=== PATIENT | male | born 1930 | race African-American/Black ===

== ENCOUNTER 2016-07-14 14:35 | Emergency (ER) | payer OTHER ==
[~2016-07-14] VITALS: Ht 167.6 cm; Wt 169.0 kg
[~2016-07-14 14:35] MED LIST: ATOR10TA PO; FURO-152 PO; INSU3INS6 SUBCUT; IOHEXOL-350 100 ML BOTTLE ONE; SODIUM CHLORIDE 0.9% 10ML VIAL ONE
[2016-07-14 15:57] LABS: BASOPHILS % 0.6 % (0.0-2.0); EOSINOPHILS % 2.4 % (0.0-5.0); HEMATOCRIT. 31.2 % (42.0-52.0); HEMOGLOBIN. 10.5 g/dL (14.0-18.0); LYMPHOCYTES % 32.9 % (20.0-50.0); MEAN CORPUSCULAR HEMOGLOBIN 29.2 pg (28.0-32.0); MEAN CORPUSCULAR HGB CONC 33.6 g/dL (31.0-37.0); MEAN PLATELET VOLUME 8.3 fl (7.4-10.4); MONOCYTES % 4.3 % (2.0-8.0); NEUTROPHILS % 59.8 % (40.0-76.0); PLATELET 236 x1000/uL (130-400); RED BLOOD CELL COUNT 3.59 mill/uL (4.7-6.1); RED CELL DISTRIBUTION WIDTH 17.7 % (11.6-14.6); WHITE BLOOD COUNT 6.4 x1000/uL (4.5-11.0)
[2016-07-14 16:02] LABS: INR 1.1; PROTHROMBIN TIME 11.9 sec
[2016-07-14 16:12] LABS: ALANINE AMINOTRANSFERASE 10 IU/L (13-61); ALBUMIN 1.8 g/dL (3.4-5.0); ANION GAP 10; CALCIUM 7.6 mg/dL (8.5-10.1); CARBON DIOXIDE 33 mEq/L (21-32); CHLORIDE 105 mEq/L (98-107); INDEX HEMOLYSI 1 (1-3); INDEX ICTERIC 1 (1-4); INDEX LIPEMIC 1 (1-3); NT PRO B-TYPE NATRIURETIC PEP 6190 pg/mL (5-125); TROPONIN I 0.03 ng/mL (0.00-0.04); UREA NITROGEN BLOOD 5 mg/dL (7-21); eGFR > 60 mL/min (>60)
[2016-07-14 17:00] LABS: CLARITY URINE CLEAR (CLEAR); COLOR URINE YELLOW (YELLOW); GLUCOSE URINE NEGATIVE (NEGATIVE); KETONES URINE NEGATIVE (NEGATIVE); LEUKOCYTE ESTERASE URINE NEGATIVE (NEGATIVE); NITRITE URINE NEGATIVE (NEGATIVE); OCCULT BLOOD URINE NEGATIVE (NEGATIVE); PROTEIN URINE NEGATIVE (NEGATIVE); SPECIFIC GRAVITY URINE 1.007 (1.005-1.030); UROBILINOGEN URINE 0.2 E.U./dL (0.2-1.0)
[2016-07-14] MEDS ORDERED: AZITHROMYCIN 500 MG in DEXT 5% WATER 250 ML IV SCH (19:15)
[2016-07-14] MEDS ORDERED: CEFTRIAXONE 1 G PREMIX 50 ML IV ONE (19:15)
[2016-07-15 01:00] VITALS: BP 147/80
== END 2016-07-15 01:55 | disposition short-term general hospital (02) ==
LOC: ER 14:53
DX: J18.9 Pneumonia, unspecified organism (principal); I26.99 Other pulmonary embolism without acute cor pulmonale; J98.11 Atelectasis; E11.9 Type 2 diabetes mellitus without complications; Z89.522 Acquired absence of left knee; Z89.521 Acquired absence of right knee; F03.90 Unspecified dementia, unspecified severity, without behavioral disturbance, psychotic disturbance, mood disturbance, and anxiety; I51.9 Heart disease, unspecified
CPT/HCPCS: 36415; 71010; 71275; 80053; 81003; 82962; 83880; 84443; 84484; 85025; 85379; 85610; 87040; 96365; 96366; 96367; 99285; A4216; J0456; J0696; Q9967; J7060

== ENCOUNTER 2016-09-24 10:45 | Emergency (ER) | payer OTHER ==
[~2016-09-24] VITALS: Ht 160 cm; Wt 80.0 kg
[~2016-09-24 10:45] MED LIST changes: -IOHEXOL-350 100 ML BOTTLE ONE; -SODIUM CHLORIDE 0.9% 10ML VIAL ONE
[2016-09-24] MEDS ORDERED: DEXTROSE 50% WATER 50ML SYRINGE IV ONE ×2 (11:23→11:30)
[2016-09-24 12:21] LABS: HEMATOCRIT. 27.8 % (42.0-52.0); HEMOGLOBIN. 9.3 g/dL (14.0-18.0); MEAN CORPUSCULAR HEMOGLOBIN 30.3 pg (28.0-32.0); MEAN CORPUSCULAR VOLUME 90.9 fL (80.0-94.0); MEAN PLATELET VOLUME 9.3 fl (7.4-10.4); PLATELET 202 x1000/uL (130-400); RED BLOOD CELL COUNT 3.06 mill/uL (4.7-6.1); RED CELL DISTRIBUTION WIDTH 17.8 % (11.6-14.6)
[2016-09-24 12:30] LABS: INR 1.1; PROTHROMBIN TIME 11.2 sec
[2016-09-24 12:38] LABS: CARBON DIOXIDE 29 mEq/L (21-32); CHLORIDE 110 mEq/L (98-107)
[2016-09-24 12:42] LABS: TROPONIN I 0.02 ng/mL (0.00-0.04)
[2016-09-24 13:58] LABS: PLATELET ESTIMATE NORMAL
[2016-09-24] MEDS ORDERED: POTASSIUM CHLORIDE 20MEQ TABLET SR PO ONE (14:00)
[2016-09-24 14:55] LABS: CLARITY URINE TURBID (CLEAR); COLOR URINE YELLOW (YELLOW); GLUCOSE URINE TRACE (NEGATIVE); KETONES URINE TRACE (NEGATIVE); LEUKOCYTE ESTERASE URINE 3+ (NEGATIVE); NITRITE URINE NEGATIVE (NEGATIVE); OCCULT BLOOD URINE 1+ (NEGATIVE); PROTEIN URINE TRACE (NEGATIVE); SPECIFIC GRAVITY URINE 1.019 (1.005-1.030); UROBILINOGEN URINE 0.2 E.U./dL (0.2-1.0)
[2016-09-24] MEDS ORDERED: CEFTRIAXONE 1 G PREMIX 50 ML IV ONE (15:15)
[2016-09-24 19:12] VITALS: BP 164/89
== END 2016-09-24 19:14 | disposition home or self-care (01) ==
LOC: ER 11:12 → CANBEDREQ 19:34
DX: E11.649 Type 2 diabetes mellitus with hypoglycemia without coma (principal); I10 Essential (primary) hypertension; E11.9 Type 2 diabetes mellitus without complications; N39.0 Urinary tract infection, site not specified; D64.9 Anemia, unspecified
CPT/HCPCS: 36415; 71010; 80053; 81001; 82962; 83690; 84484; 85025; 85610; 87077; 87086; 87186; 93005; 96365; 96366; 96375; 99285; J0696

== ENCOUNTER 2016-10-05 21:59 | Emergency (ER) | payer OTHER ==
[~2016-10-05] VITALS: Ht 177.8 cm; Wt 68.0 kg
[2016-10-05 23:21] LABS: HEMATOCRIT. 28.9 % (42.0-52.0); HEMOGLOBIN. 9.5 g/dL (14.0-18.0); MEAN CORPUSCULAR HEMOGLOBIN 30.2 pg (28.0-32.0); MEAN CORPUSCULAR VOLUME 91.6 fL (80.0-94.0); MEAN PLATELET VOLUME 9.5 fl (7.4-10.4); PLATELET 213 x1000/uL (130-400); RED BLOOD CELL COUNT 3.15 mill/uL (4.7-6.1); RED CELL DISTRIBUTION WIDTH 17.3 % (11.6-14.6)
[2016-10-05 23:26] LABS: INR 1.1; PARTIAL THROMBOPLASTIN TIME 27.3 sec (24.0-34.0); PROTHROMBIN TIME 11.3 sec
[2016-10-05 23:30] LABS: AMMONIA < 10 uMol/L (<32)
[2016-10-05 23:37] LABS: CARBON DIOXIDE 34 mEq/L (21-32); CHLORIDE 111 mEq/L (98-107); CREATINE KINASE 30 IU/L (39-308); ETHANOL BLOOD < 10 mg/dL; TROPONIN I 0.03 ng/mL (0.00-0.04)
[2016-10-05 23:41] LABS: CREATINE KINASE MB FRACTION 1.6 ng/mL (0.5-3.6)
[2016-10-06] MEDS ORDERED: SODIUM CHLORIDE 0.9% 1,000 ML IV ONE ×2 (00:19→00:43)
[2016-10-06 03:01] LABS: PLATELET ESTIMATE NORMAL
[2016-10-06] MEDS ORDERED: DEXTROSE 50% WATER 50ML SYRINGE IV ONE (03:15)
[2016-10-06 03:22] VITALS: BP 138/68
[2016-10-06 03:51] LABS: *AMPHETAMINES SCREEN URINE NEGATIVE (NEGATIVE); *BARBITURATES SCREEN URINE NEGATIVE (NEGATIVE); *BENZODIAZEPINES SCREEN URINE NEGATIVE (NEGATIVE); *COCAINE SCREEN URINE NEGATIVE (NEGATIVE); CANNABINOID URINE SCREEN NEGATIVE (NEGATIVE); OPIATES URINE SCREEN NEGATIVE (NEGATIVE); PHENCYCLIDINE URINE SCREEN NEGATIVE (NEGATIVE)
[2016-10-06 03:53] LABS: CLARITY URINE CLOUDY (CLEAR); COLOR URINE YELLOW (YELLOW); GLUCOSE URINE NEGATIVE (NEGATIVE); KETONES URINE NEGATIVE (NEGATIVE); LEUKOCYTE ESTERASE URINE 3+ (NEGATIVE); NITRITE URINE NEGATIVE (NEGATIVE); OCCULT BLOOD URINE TRACE (NEGATIVE); PROTEIN URINE NEGATIVE (NEGATIVE); SPECIFIC GRAVITY URINE 1.017 (1.005-1.030); UROBILINOGEN URINE 0.2 E.U./dL (0.2-1.0)
[2016-10-06 04:23] LABS: METHADONE URINE SCREEN NEGATIVE (NEGATIVE)
== END 2016-10-06 03:37 | disposition short-term general hospital (02) ==
LOC: ER 22:13 → CANBEDREQ 10-06 06:37
DX: E10.649 Type 1 diabetes mellitus with hypoglycemia without coma (principal); E87.2 Acidosis; Z91.14 Patient's other noncompliance with medication regimen; Z79.4 Long term (current) use of insulin; Z89.512 Acquired absence of left leg below knee; Z89.511 Acquired absence of right leg below knee
CPT/HCPCS: 36415; 70450; 71010; 80053; 80305; 80307; 80329; 81001; 82140; 82550; 82553; 82962; 83605; 84443; 84484; 85025; 85610; 85730; 93005; 96361; 96374; 99291; G0482; J7030